=== PATIENT | female | born 2000 | race Hispanic/Latino ===

== ENCOUNTER 2022-11-17 15:25 | Outpatient (CLI) | payer OTHER | END 2022-11-17 19:18 | disposition home or self-care (01) | LOC: RAD 15:25 | PROVIDERS: ATTEND Internal Medicine | DX: M79.672 Pain in left foot (principal); R60.0 Localized edema ==

== ENCOUNTER 2023-01-15 15:51 | Outpatient (CLI) | payer OTHER | END 2023-01-15 19:30 | disposition home or self-care (01) | LOC: US 15:51 | PROVIDERS: ATTEND Internal Medicine | DX: R13.19 Other dysphagia (principal) ==